=== PATIENT | female | born 1945 | race Caucasian/White ===

== ENCOUNTER 2022-08-14 15:00 | Outpatient (RCR) | payer MEDICARE ==
[~2022-08-14 15:00] MED LIST: Aspirin PO; BENICAR HCT 201 EACH PO; BENICAR HCT 401 EACH PO; CADUET 10 MG-11 EACH PO; CADUET 10 MG-21 EACH PO; LORTAB 7.5-5001 EACH PO; METOPROLOL SUCC25 MG PO; MULTIVITAMIN PO; SYNTHROID150 MCG PO; TYLENOL PO; ULTRAM 50MG50 MG PO; VERAMYST10 GM
== END 2022-08-15 ==
LOC: PT 15:00
PROVIDERS: ATTEND Specialist
DX: M43.16 Spondylolisthesis, lumbar region (principal); M54.50 Low back pain, unspecified; M62.81 Muscle weakness (generalized); R26.2 Difficulty in walking, not elsewhere classified

== ENCOUNTER → 2023-10-01 | Day surgery (SDC) | payer MEDICARE ==
[2023-09-27 15:44] LABS: BASOPHILS % 0.5 % (0.0-1.0); EOSINOPHILS # (AUTO) 0.3 (0.0-0.4); EOSINOPHILS % 3.4 % (0.0-6.0); HEMATOCRIT 31.5 % (34.2-44.1); HEMOGLOBIN 10.8 g/dL (12.0-16.0); LYMPHOCYTES # (AUTO) 1.5 (1.0-3.2); LYMPHOCYTES % 19.4 % (18.0-39.1); MEAN CORPUSCULAR HEMOGLOBIN 29.8 pg (28-32); MEAN CORPUSCULAR HGB CONC 34.3 g/dL (31-35); MEAN CORPUSCULAR VOLUME 86.8 fL (81-99); MONOCYTES # (AUTO) 0.6 (0.2-0.8); MONOCYTES % 7.9 % (4.4-11.3); NEUTROPHILS # (AUTO) 5.3 (2.1-6.9); NEUTROPHILS % 68.7 % (38.7-80.0); PLATELET COUNT 217 x10e3/uL (140-360); RED BLOOD COUNT 3.63 x10e6/uL (3.6-5.1); RED CELL DISTRIBUTION WIDTH 14.6 % (11.7-14.4); WHITE BLOOD COUNT 7.69 x10e3/uL (4.8-10.8)
[~2023-10-01] MED LIST changes: +ACIDOPHILUS1 EAC1 PO; +ADVIL LIQUI-GE200 MG PO; +B12 ACTIVE1000 MCG PO; +BENICAR20 MG PO; +CIPRO500 MG PO; +DICYCLOMINE HCL20 MG PO; +FAMOTIDINE20 MG PO; +FENTANYL CITRATE/PF 100MCG/2 ML INJ ONE; +FLONASE ALLERG9.9 ML INH; +HYOSCYAMINE SULFATE 0.5 MG/ML INJ ONE; +LEVOCETIRIZINE D5 MG PO; +LIDOCAINE HCL 2% LOCAL INJ 5 ML SDV VIAL INJ ONE; +METRONIDAZOLE500 MG PO; +OXYBUTYNIN; +PROBIOTIC & AC1 EACH PO; +PROPOFOL IV EMULSION 10 MG/ML 20 ML VIAL ONE; +PROPOFOL IV EMULSION 10 MG/ML 50 ML VIAL IV ONE; +VITAMIN D3 MA125 MCG PO; +ditropan PO
[2023-10-01] MEDS: LACTATED RINGER'S 1,000 ML ONE (07:49)
[2023-10-01 10:40] VITALS: BP 122/64; PULSE 68; RESP 17; TEMP 97.5; O2SAT 95
[2023-10-02 10:34] LABS: C-REACTIVE PROTEIN 43 mg/L (0-10)
[2023-10-04 09:13] LABS: ENDOMYSIAL ANTIBODIES, IGA Negative (Negative)
[2023-10-04 13:32] LABS: IMMUNOGLOBULIN A 316 mg/dL (64-422); TISSUE TRANSGLUTAMINASE IGA AB <2 U/mL (0-3)
== END | disposition home or self-care (01) ==
LOC: OR 07:20
PROVIDERS: ATTEND Internal Medicine Gastroenterology
DX: K52.89 Other specified noninfective gastroenteritis and colitis (principal); Z86.010 Personal history of colon polyps; K57.92 Diverticulitis of intestine, part unspecified, without perforation or abscess without bleeding; K62.89 Other specified diseases of anus and rectum; K64.8 Other hemorrhoids; K21.9 Gastro-esophageal reflux disease without esophagitis; G47.33 Obstructive sleep apnea (adult) (pediatric); I10 Essential (primary) hypertension; E78.5 Hyperlipidemia, unspecified; E03.9 Hypothyroidism, unspecified; M06.9 Rheumatoid arthritis, unspecified; Z88.0 Allergy status to penicillin; Z01.812 Encounter for preprocedural laboratory examination; Z79.1 Long term (current) use of non-steroidal anti-inflammatories (NSAID); Z79.899 Other long term (current) drug therapy; Z68.31 Body mass index [BMI] 31.0-31.9, adult; Z87.891 Personal history of nicotine dependence
CPT/HCPCS: 36415; 45380; 82784; 83516; 83630; 83993; 85025; 86140; 86256; 87045; 87177; 87324; 87328; 87449; J1980; J2001; J2704 ×2; J3010; J7121; 45378